=== PATIENT | female | born 1985 | race Two or more races ===

== ENCOUNTER 2022-12-16 14:43 | Emergency (ER) | payer MEDICAID, OTHER ==
[~2022-12-16] VITALS: Ht 157.5 cm; Wt 71.0 kg
[2022-12-16 15:01] VITALS: BP 140/72; PULSE 71; RESP 18; TEMP 98.3; O2SAT 95
[2022-12-16 15:40] LABS: Basophils # (auto) 0.1 10 ^3/uL (0-0.2); Basophils % (auto) 0.8 % (0.0-2.0); Eosinophils # (auto) 0.4 10 ^3/uL (0-0.8); Hemoglobin 11.4 g/dL (12.2-16.2); Lymphocytes # (auto) 1.7 10 ^3/uL (0.4-5.4); Neutrophils # (auto) 5.4 10 ^3/uL (1.6-8.6); White Blood Cell 8.1 10^3/uL (4.4-10.8)
[2022-12-16 15:42] LABS: Eosinophils % (auto) 4.7 % (0.0-7.0); Hematocrit 36.6 % (36.0-46.0); Mean Corpuscular Hemoglobin 22.2 pg (28.0-32.0); Mean Corpuscular Hgb Conc. 31.2 g/dL (32.0-36.0); Mean Corpuscular Volume 71.2 fL (80.0-100.0); Monocytes # (auto) 0.6 10 ^3/uL (0-1.3); Monocytes % (auto) 7.3 % (0.0-12.0); Neutrophils % (auto) 66.2 % (37.0-80.0); Red Blood Cells 5.14 10^6/uL (4.0-5.20); Red Cell Distribution Width 20.4 % (11.8-14.3)
[2022-12-16 15:55] LABS: Albumin 3.7 g/dL (3.4-5.0); Calcium 8.8 mg/dL (8.5-10.1); Potassium 3.9 mmol/L (3.5-5.1)
[2022-12-16 15:58] LABS: BUN/Creatinine Ratio 15.2 (10.0-20.0); Bilirubin, Total 0.3 mg/dL (0.2-1.0); Total Protein 7.5 g/dL (6.4-8.2)
== END 2022-12-16 17:12 | disposition home or self-care (01) ==
LOC: ER 14:43
DX: R10.2 Pelvic and perineal pain (principal); D21.9 Benign neoplasm of connective and other soft tissue, unspecified
CPT/HCPCS: 36415; 76856; 80053; 84702; 85025

== ENCOUNTER 2023-01-13 13:41 | Emergency (ER) | payer MEDICAID ==
[~2023-01-13] VITALS: Ht 154.9 cm; Wt 70.2 kg
[2023-01-13 14:43] LABS: Urine Bacteria NONE SEEN /hpf (None Seen); Urine Blood Negative /uL (Negative); Urine Clarity Clear (Clear); Urine Color Yellow (Yellow); Urine Mucus FEW (None Seen); Urine Protein, UAD Negative (Negative); Urine Specific Gravity 1.025 (1.001-1.035); Urine Urobilinogen Normal (Negative); Urine WBC 1 /hpf (0 - 5); Urine pH 6.5 (5.0-8.0)
[2023-01-13 15:27] LABS: Basophils # (auto) 0.1 10 ^3/uL (0-0.2); Eosinophils # (auto) 0.4 10 ^3/uL (0-0.8); Hematocrit 39.5 % (36.0-46.0); Lymphocytes # (auto) 2.1 10 ^3/uL (0.4-5.4); Monocytes # (auto) 0.7 10 ^3/uL (0-1.3)
[2023-01-13 15:29] LABS: Basophils % (auto) 0.8 % (0.0-2.0); Eosinophils % (auto) 3.6 % (0.0-7.0); Hemoglobin 12.7 g/dL (12.2-16.2); Lymphocytes % (auto) 21.5 % (10.0-50.0); Mean Corpuscular Hemoglobin 23.6 pg (28.0-32.0); Mean Corpuscular Volume 73.8 fL (80.0-100.0); Monocytes % (auto) 7.5 % (0.0-12.0); Neutrophils # (auto) 6.5 10 ^3/uL (1.6-8.6); Neutrophils % (auto) 66.6 % (37.0-80.0); Nucleated Red Blood Cells % 0.1 %; Red Blood Cells 5.36 10^6/uL (4.0-5.20); White Blood Cell 9.8 10^3/uL (4.4-10.8)
[2023-01-13 15:38] LABS: Red Cell Distribution Width 22.3 % (11.8-14.3)
[2023-01-13 15:49] LABS: Alanine Aminotransferase 22 U/L (7-40); Albumin 4.6 g/dL (3.2-4.8); Alkaline Phosphatase 70 U/L (46-116); Anion Gap 5.6 (5-15); Aspartate Aminotransferase 13 U/L (13-40); Bilirubin, Total 0.5 mg/dL (0.2-1.0); Blood Urea Nitrogen 9 mg/dL (9-23); Calcium 9.9 mg/dL (8.7-10.4); Carbon Dioxide 25.4 mmol/L (20-30); Chloride 105 mmol/L (98-107); Glucose 102 mg/dL (74-106); Lipase 41 U/L (12-53); Potassium 4.4 mmol/L (3.5-5.1); Sodium 136 mmol/L (136-145); Total Protein 7.5 g/dL (5.7-8.2)
[2023-01-13 16:17] LABS: Anisocytosis Slight; Hypochromia Moderate; Platelet Estimate Adequate
[2023-01-13] MEDS ORDERED: fentaNYL CITRATE 100 MCG/2 ML VL IV ONE (19:15)
[2023-01-13] MEDS ORDERED: HYDR1TAB97 PO (19:20)
[2023-01-13 20:10] VITALS: BP 147/77; PULSE 75; RESP 15; TEMP 99.2; O2SAT 99
[2023-01-13] MEDS ORDERED: HYDROcodone-ACET 5/325MG TAB PO ONE (20:15)
== END 2023-01-13 20:22 | disposition home or self-care (01) ==
LOC: ER 13:41
DX: T81.9XXA Unspecified complication of procedure, initial encounter (principal); R10.2 Pelvic and perineal pain; N85.8 Other specified noninflammatory disorders of uterus; Z32.02 Encounter for pregnancy test, result negative
CPT/HCPCS: 36415; 74176; 76830; 76856; 80053; 81001; 81025; 83605; 83690; 84702; 85025; 93005

== ENCOUNTER 2024-04-08 19:50 | Emergency (ER) | payer OTHER, MEDICAID ==
[~2024-04-08] VITALS: Ht 157.5 cm; Wt 73.1 kg
[~2024-04-08 19:50] MED LIST: HYDR1TAB97 PO
[2024-04-08 20:03] VITALS: BP 151/92; PULSE 74; RESP 16; TEMP 99.1; O2SAT 99
--- NOTE | 2024-04-08 21:14 | DVH ---
EXAM: XY CERVICAL SPINE 3V INDICATION: pain COMPARISON: none TECHNIQUE: 3 views of the cervical spine were obtained. Findings: There is no evidence of an acute fracture, spondylolysis, or spondylolisthesis. The vertebral body heights and disc spaces are well-maintained. No blastic or lytic lesions are appreciated. No radiopaque foreign bodies. No superficial soft tissue abnormalities. Impression: 1. No acute osseous abnormality.
[2024-04-08] MEDS: ONDANSETRON ODT 4 MG TAB PO ONE (22:28)
[2024-04-08] MEDS: DexAMETHasone SOD PHOS 10MG/1ML VIAL INJ IM ONE (22:33)
[2024-04-08] MEDS: KETOROLAC TROMETH 60MG/2ML VIAL IM ONE (22:34)
[2024-04-08] MEDS ORDERED: TIZA4CAP PO (23:38)
--- NOTE | 2024-04-08 23:39 | ED.PDOC ---
Back pain HPI HPI Comments THIS IS A 39-YEAR-OLD FEMALE PRESENTS TO THE ED CHIEF COMPLAINT HEADACHE AND NECK PAIN. PATIENT STATES NECK PAIN STARTED 1 MONTH AGO STATES AFTER HYSTERECTOMY. SHE IS COMPLAINING OF POSTERIOR NECK PAIN 8/10 ON PAIN SCALE STIFF AND TINGLING IN NATURE SHE STATES RADIATES UP BACK OF HER SCALP ONTO THE TOP OF HER HEAD. SHE DENIES ANY KNOWN INJURY. HE HAS NUMBNESS OR WEAKNESS. DENIES WORST HEADACHE OF HER LIFE. DENIES NAUSEA OR VOMITING FEVERS OR CHILLS. Chief Complaint: Neck Pain Time Seen by MD: 20:15 Primary Care Provider: CLIFFORD Reviewed Notes: Nurses Notes, Medications, Allergies Allergies: Coded Allergies: NO KNOWN ALLERGIES (Unverified , 12/16/22) Home Meds Active Scripts Tizanidine Hydrochloride (Zanaflex) 4 Mg Cap, 1 CAP PO QPM PRN for 5 Days, #5 CAP Prov:TIFFANY SIMMS 04/08/24 Hydrocodone-Acetaminophen (Hydrocodone/Acetaminophen 5-325 mg) 1 Tab Tab, 1 TAB PO [id number] PRN for 5 Days, #10 TAB Prov:JESSE YOUNG DO 01/13/23 Mode of Arrival: Ambulatory Family History Family History: Reviewed,noncontributory to illness Social History Smoking: Non-Smoker Alcohol: Denies ETOH Use Drugs: Denies Drug Use Lives In: Home Constitutional: denies: chills, diaphoresis, fatigue, fever, malaise, sweats, weakness, others EENTM: denies: blurred vision, double vision, ear bleeding, ear discharge, ear drainage, ear pain, ear ringing, eye pain, eye redness, hearing loss, mouth pain, mouth swelling, nasal discharge, nose bleeding, nose congestion, nose pain, photophobia, tearing, throat pain, throat swelling, voice changes, others Respiratory: denies: cough, hemoptysis, orthopnea, SOB at rest, shortness of breath, SOB with excertion, stridor, wheezing, others Cardiovascular: denies: chest pain, dizzy spells, diaphoresis, Dyspnea on exertion, edema, irregular heart beat, left arm pain, lightheadedness, palpitations, PND, syncope, others Gastrointestinal: denies: abdomen distended, abdominal pain, blood streaked bowels, constipated, diarrhea, dysphagia, difficulty swallowing, hematemesis, melena, nausea, poor appetite, poor fluid intake, rectal bleeding, rectal pain, vomiting, others Genitourinary: denies: abnormal vagina bleeding, burning, dyspareunia, dysuria, flank pain, frequency, hematuria, incontinence, pain, , vagina discharge, urgency, others Neurological: reports: headache; denies: dizziness, fainting, left sided numbness, left sided weakness, numbness, paresthesia, pre-existing deficit, right sided numbness, right sided weakness, seizure, speech problems, tingling, tremors, weakness, others Musculoskeletal: reports: neck pain; denies: back pain, gout, joint pain, joint swelling, muscle pain, muscle stiffness, others Integumetry: denies: bruises, change in color, change in hair/nails, dryness, laceration, lesions, lumps, rash, wounds, others Allergic/Immunocompromised: denies: Difficulty Healing, Frequent Infections, Hives, Itching, others Hematologic/Lymphatic: denies: anemia, blood clots, easy bleeding, easy bruising, swollen glands, others Endocrine: denies: excessive hunger, excessive sweating, excessive thirst, excessive urination, flushing, intolerance to cold, intolerance to heat, un explained weight gain, unexplained weight loss, others Psychiatric: denies: anxiety, bipolar disorder, depression, hopeless, panic disorder, schizophrenia, sleepless, suicidal, others Physical Exam General Appearance: No Apparent Distress, Normal HEENT: Normal ENT Inspection, Pharynx Normal, TMs Normal Neck: Limited Range of Motion, Other (TENDERNESS PALPATED C2 THROUGH C5 PARASPINAL MUSCLES WITH NOTED SPASMS. TENDERNESS PALPATED OCCIPITAL SCALP AND TOP OF SCALP. STRENGTH SENSORY AND MOTION INTACT POSITIVE RADIAL PULSES.) Respiratory: Chest Non-Tender, Lungs Clear, No Accessory Muscle Use, No Respiratory Distress, Normal Breath Sounds Cardiovascular: No Edema, No JVD, No Murmur, No Gallop, Normal Peripheral Pulses, Regular Rate/Rhythm Breast Exam: Deferred Gastrointestinal: No Organomegaly, Non Tender, No Pulsatile Mass, Normal Bowel Sounds, Soft Genitalia: Deferred Pelvic: Deferred Rectal: Deferred Extremities: No calf tenderness, Normal capillary refill, Normal inspection, Normal range of motion, Non-tender, No pedal edema Musculoskeletal : Apperance: Normal Neurologic: Alert, citizenship teacher II-XII nml as Tested, No Motor Deficits, Normal Affect, Normal Mood, No Sensory Deficits Cerebellar Function: Normal Reflexes: Normal Skin: Dry, Normal Color, Warm Lymphatic: No Adenopathy Was a procedure done? Was a procedure done?: No Back Pain Differential Dx Differential Diagnosis: Fracture, Musculoskeletal Pain, Strain X-Ray, Labs, Meds, VS Vital Signs Date Time Temp Pulse Resp B/P (MAP) Pulse Ox O2 Delivery O2 Flow Rate FiO2 04/08/24 20:03 Room Air 04/08/24 20:03 99.1 74 16 151/92 (111) 99 04/08/24 20:03 99.1 74 16 151/92 (111) 99 99.1 X-Ray, Labs, Meds, VS Comment CERVICAL X-RAY SHOWS NO ACUTE FINDINGS OR OSSEOUS LESIONS. PATIENT GIVEN DECADRON 10 MG IM, ZOFRAN 4 MG P.O., AND TORADOL 60 MG IM. SHE REPORTS IMPROVEMENT IN HER PAIN AND FUNCTION. SHE IS REQUESTING DISCHARGE AT THIS TIME. ADVISED HEADACHES LIKELY SECONDARY TO NECK PAIN LIKELY CERVICOGENIC. TRIAL MUSCLE RELAXER. FOLLOW UP WITH PCP IN 2-3 DAYS NECESSARY. CONSIDER REFERRAL FOR PHYSICAL THERAPY OR STEEL FABRICATOR. ER RETURN PRECAUTIONS GIVEN. PATIENT AGREES WITH DISCHARGE PLAN OF CARE. Time of 1ST Reevaluation: 23:38 Reevaluation 1ST: Improved Patient Education/Counseling: Diagnosis, Treatment, Prognosis, Need For Follow Up Family Education/Counseling: No Family Present Departure 1 Departure Time of Disposition: 23:38 Impression: Primary Impression: Cervicogenic headache Disposition: 01 HOME / SELF CARE / HOMELESS Condition: Stable e-Prescriptions Tizanidine Hydrochloride (Zanaflex) 4 Mg Cap 1 CAP PO QPM PRN for 5 Days, #5 CAP Prov: TIFFANY SIMMS 04/08/24 Discharged With: Self Critical Care Note Critical Care Time?: No Stability Stability form required: TIFFANY Rausch Apr 08, 2024 23:39
== END 2024-04-09 00:15 | disposition home or self-care (01) ==
LOC: ER 19:50
DX: G44.86 Cervicogenic headache (principal)
CPT/HCPCS: 72040; 96372; 99284; J1100; J1885; Q0162